=== PATIENT | male | born 1955 | race Caucasian/White ===

== ENCOUNTER → 2017-09-13 | Outpatient (CLI) | payer OTHER | LOC: M RAD 17:01 | DX: J32.4 Chronic pansinusitis (principal); J34.89 Other specified disorders of nose and nasal sinuses | CPT/HCPCS: 70486 ==

== ENCOUNTER → 2019-07-17 | Outpatient (CLI) | payer OTHER ==
[~2019-07-17] MED LIST: ISOVUE-370 76% 100ML VIAL (Q9967) As Ordered ONE
--- NOTE | 2019-07-18 06:46 | REP ---
Clinical: Renal cyst. Technique: Axial precontrast, arterial, portal venous, and delayed phase images of the abdomen using 100 ml Isovue 370 intravenous contrast material with coronal and sagittal re-formations. Comparison: None. Findings: Evaluation of the urinary tract system demonstrates 2 mm nonobstructing left renal calculus along with 6.6 cm simple right renal cyst, 3.0 cm simple left renal cyst and few scattered bilateral subcentimeter renal cysts. No obvious renal mass lesion. The kidneys demonstrate symmetric parenchymal enhancement and symmetric excretion to the collecting system. There is no hydronephrosis or perinephric stranding. Liver, pancreas, gallbladder, and bilateral adrenal glands are normal. The spleen includes a 2.2 cm round enhancing lesion with subsequent isodense appearance on delayed images suggesting small lymphangioma/hemangioma. Visualized portions of the enteric system are unremarkable. Abdominal aorta demonstrates atherosclerotic changes without aneurysm. No ascites. No obvious adenopathy. Impression: 1. Simple appearing renal cysts as described above up to 6.6 cm. 2. 2 mm nonobstructing left renal calculus. 3. 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 Electronically Signed by Dillon Gates MD 07/18/2019 06:37 A
== END ==
LOC: M RAD 13:54
PROVIDERS: ATTEND Nurse Practitioner Family
DX: N28.1 Cyst of kidney, acquired (principal)
CPT/HCPCS: 74170; Q9967

== ENCOUNTER → 2022-06-03 | Outpatient (CLI) | payer OTHER | LOC: M RAD 14:05 | PROVIDERS: ATTEND Physical Therapist | DX: F17.211 Nicotine dependence, cigarettes, in remission (principal) ==